=== PATIENT | female | born 1995 | race Caucasian/White ===

== ENCOUNTER 2017-01-03 16:52 | Emergency (ER) | payer SELFPAY | END 2017-01-03 17:24 | disposition home or self-care (01) | LOC: NAV ERS 16:52 | DX: J20.9 Acute bronchitis, unspecified (principal); F31.9 Bipolar disorder, unspecified; F41.9 Anxiety disorder, unspecified; F90.9 Attention-deficit hyperactivity disorder, unspecified type; F17.210 Nicotine dependence, cigarettes, uncomplicated | CPT/HCPCS: 99283 ==

== ENCOUNTER 2017-01-09 07:38 | Emergency (ER) | payer SELFPAY ==
[2017-01-09] MEDS ORDERED: Azithromycin 250 MG TAB ONE (08:12)
== END 2017-01-09 08:19 | disposition home or self-care (01) ==
LOC: NAV ERS 07:38
DX: J20.9 Acute bronchitis, unspecified (principal); F31.9 Bipolar disorder, unspecified; F41.9 Anxiety disorder, unspecified; F90.9 Attention-deficit hyperactivity disorder, unspecified type; F17.210 Nicotine dependence, cigarettes, uncomplicated; Z79.899 Other long term (current) drug therapy
CPT/HCPCS: 99283